=== PATIENT | female | born 1975 | race Caucasian/White ===

== ENCOUNTER 2017-03-29 09:43 | Emergency (ER) | payer SELFPAY ==
[~2017-03-29 09:43] MED LIST: MOT600 PO
[2017-03-29 10:56] LABS: BASOPHIL % 0.3 % (0-2); PLATELET COUNT 273 x10^3mcL (130-400)
[2017-03-29 11:03] LABS: RED CELL DISTRIBUTION WIDTH 16.7 % (11.5-14.5)
[2017-03-29 11:09] LABS: CALCIUM 8.5 mg/dL (8.5-10.1); CARBON DIOXIDE 26.9 mmol/L (21-32); CHLORIDE SERUM 103 mmol/L (98-107); CREATININE SERUM 0.8 mg/dL (0.6-1.0); GFR1 > 60 mL/min; GLUCOSE SERUM 155 mg/dL (74-106); POTASSIUM SERUM 3.8 mmol/L (3.5-5.1); SODIUM SERUM 137 mmol/L (136-145)
[2017-03-29 11:13] LABS: ALBUMIN 3.6 g/dL (3.4-5.0); ALKALINE PHOSPHATASE 69 U/L (46-116); ALT/SGPT 69 U/L (14-59); AST/SGOT 37 U/L (15-37); BILIRUBIN TOTAL 0.4 mg/dL (0.20-1.00); TOTAL PROTEIN, SERUM 7.9 g/dL (6.4-8.2)
[2017-03-29 12:53] VITALS: BP 121/83
== END 2017-03-29 12:53 | disposition home or self-care (01) ==
LOC: ED 09:43
PROVIDERS: Emergency Medicine
DX: S16.1XXA Strain of muscle, fascia and tendon at neck level, initial encounter (principal); E78.00 Pure hypercholesterolemia, unspecified; Z88.0 Allergy status to penicillin; X58.XXXA Exposure to other specified factors, initial encounter; Y93.89 Activity, other specified; Y99.8 Other external cause status; Y92.89 Other specified places as the place of occurrence of the external cause
CPT/HCPCS: 36415; J1885; Q0092

== ENCOUNTER 2018-02-26 09:35 | Emergency (ER) | payer MEDICAID ==
[2018-02-26 09:48] VITALS: Ht 152.4 cm
[2018-02-26 12:56] VITALS: BP 140/90
== END 2018-02-26 12:57 | disposition home or self-care (01) ==
LOC: ED 09:35
DX: M54.6 Pain in thoracic spine (principal); R05 Cough; R19.7 Diarrhea, unspecified; E78.00 Pure hypercholesterolemia, unspecified; Z88.0 Allergy status to penicillin
CPT/HCPCS: Q0092